=== PATIENT | female | born 1950 | race Caucasian/White ===

== ENCOUNTER → 2019-01-25 | Day surgery (SDC) | payer MEDICARE ==
[~2019-01-25] MED LIST: BARIUM SULFATE 1,900 ML ORAL.SUSP ONE; BARIUM SULFATE 1,900 ML ORAL.SUSP PR ONE
== END | disposition home or self-care (01) ==
LOC: RAD 10:57
PROVIDERS: ATTEND Surgery
DX: Z12.11 Encounter for screening for malignant neoplasm of colon (principal); K63.89 Other specified diseases of intestine
CPT/HCPCS: 74270